=== PATIENT | female | born 1995 | race Caucasian/White ===

== ENCOUNTER 2017-03-20 12:13 | Emergency (ER) | payer SELFPAY ==
[~2017-03-20] VITALS: Ht 157.5 cm; Wt 81.2 kg
[2017-03-20 12:22] VITALS: BP 132/59
--- NOTE | 2017-03-20 13:25 | PHYS DOC ---
Past Medical History Past Medical History: Bipolar Past Surgical History: Tonsillectomy Alcohol Use: None Drug Use: None Adult General Chief Complaint Chief Complaint: ABDOMINAL PAIN IN HPI HPI Patient is a 21 year old female who presents with mild crampy lower abdominal pain for the past day, constant, migratory. 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 She has 3 +preg tests at home. She denies vaginal bleeding, dysuria, hematuria, diarrhea, constipation. Review of Systems Review of Systems Constitutional: Denies fever or chills [] Eyes: Denies change in visual acuity, redness, or eye pain [] HENT: Denies nasal congestion or sore throat [] Respiratory: Denies cough or shortness of breath [] Cardiovascular: No additional information not addressed in HPI [] GI: Denies nausea, vomiting, bloody stools or diarrhea [] : Denies dysuria or hematuria [] Musculoskeletal: Denies back pain or joint pain [] Integument: Denies rash or skin lesions [] Neurologic: Denies headache, focal weakness or sensory changes [] Endocrine: Denies polyuria or polydipsia [] Allergies Allergies Allergies Coded Allergies Type Severity Reaction Last Updated Verified No Known Drug Allergies 03/20/17 No Physical Exam Physical Exam Constitutional: Well developed, well nourished, no acute distress, non-toxic appearance. [] HENT: Normocephalic, atraumatic, bilateral external ears normal, oropharynx moist, nose normal. [] Eyes: PERRLA, EOMI. [] Neck: Normal range of motion, supple. [] Cardiovascular:Heart rate regular rhythm [] Lungs & Thorax: Bilateral breath sounds clear to auscultation [] Abdomen: Bowel sounds normal, soft, no tenderness. [] Skin: Warm, dry, no erythema, no rash. [] Back: Normal range of motion. [] Extremities: No tenderness, ROM intact, no edema. [] Neurologic: Alert and oriented X 3, normal motor function, normal sensory function, no focal deficits noted. [] Psychologic: Affect normal, judgement normal, mood normal. [] Current Patient Data Vital Signs Vital Signs Date Time Temp Pulse Resp B/P (MAP) Pulse Ox O2 Delivery O2 Flow Rate FiO2 03/20/17 12:22 98.5 91 18 132/59 (83) 99 Room Air 98.5 Lab Values Laboratory Tests Test 03/20/17 11:36 POC Urine HCG, Qualitative Hcg positive (Negative) Radiology/Procedures Radiology/Procedures OB ultrasound Findings: Probable gestational sac and yolk sac are identified. A pole and heart tones are not yet identified. Gestational sac diameter is 0.88 cm corresponding to gestational age of 5 weeks 5 days and an PETEY by ultrasound of November 15, 2017. There is no evidence of an implantation bleed. Both maternal ovaries are visualized. Corpus luteum or hemorrhagic cyst in the left ovary measures 2 cm. Color flow and waveform is documented for both ovaries. There is no free pelvic fluid. Impression: Probable gestational sac and yolk sac identified, although definite pole is not yet identified and heart tones could not be documented. Serial hCG would be suggested. Short-term follow-up may be of benefit. DICTATED and SIGNED BY: ALEJANDRO JOHNSON MD DATE: 03/20/17 6277 Course & Med Decision Making Course & Med Decision Making Pertinent Labs and Imaging studies reviewed. (See chart for details) Ultrasound as above. Encouraged OB clinic follow up. Return precautions given. She understands and agrees with plan. Dragon Disclaimer Dragon Disclaimer This electronic medical record was generated, in whole or in part, using a voice recognition dictation system. Departure Departure Impression: Primary Impression: Abdominal pain during Disposition: 01 HOME, SELF-CARE Condition: STABLE Referrals: CHAR DO MD Patient Instructions: Abdominal Pain During , [id number] Additional Instructions: Take a daily multivitamin. Take tylenol as needed for pain. Follow up with OB clinic within 1 week. Call for appointment. Return for any concerns. Problem Qualifiers Primary Impression: Abdominal pain during Trimester: first trimester Qualified Codes: O26.891 - Other specified related conditions, first trimester; R10.9 - Unspecified abdominal pain Leisa ENRIQUEZ MD March 20, 2017 13:25
--- NOTE | 2017-03-20 13:40 | RAD ---
Indication: Pelvic pain. . Technique: Transabdominal imaging was performed but was limited. Transvaginal imaging was required to evaluate the endometrial contents. Findings: Probable gestational sac and yolk sac are identified. A pole and heart tones are not yet identified. Gestational sac diameter is 0.88 cm corresponding to gestational age of 5 weeks 5 days and an PETEY by ultrasound of November 15, 2017. There is no evidence of an implantation bleed. Both maternal ovaries are visualized. Corpus luteum or hemorrhagic cyst in the left ovary measures 2 cm. Color flow and waveform is documented for both ovaries. There is no free pelvic fluid. Impression: Probable gestational sac and yolk sac identified, although definite pole is not yet identified and heart tones could not be documented. Serial hCG would be suggested. Short-term follow-up may be of benefit.
== END 2017-03-20 14:00 | disposition home or self-care (01) ==
LOC: ER 13:28
DX: O26.891 Other specified pregnancy related conditions, first trimester (principal); R10.30 Lower abdominal pain, unspecified; R10.2 Pelvic and perineal pain; F31.9 Bipolar disorder, unspecified
CPT/HCPCS: 36415; 76801; 76817; 81025; 84702; 84703; 99285-25

== ENCOUNTER 2017-04-04 14:59 | Emergency (ER) | payer OTHER ==
[~2017-04-04] VITALS: Ht 157.5 cm; Wt 63.5 kg
[2017-04-04 16:17] VITALS: BP 134/75
[2017-04-04] MEDS ORDERED: 0.9 % SODIUM CHLORIDE 10 ML DISP.SYRIN. IV PRN (16:30)
[2017-04-04] MEDS ORDERED: IV NORMAL SALINE 1000ML BAG 1,000 ML IV SCH (16:45)
[2017-04-04] MEDS ORDERED: ONDANSETRON PF 4 MG/2 ML VIAL. IV ONE (16:45)
[2017-04-04 16:49] LABS: BILIRUBIN,URINE NEGATIVE (NEG); GLUCOSE,URINE NEGATIVE (NEG); NITRITE,URINE NEGATIVE (NEG); PROTEIN,URINE 30 mg/dL (NEG-TRACE); UROBILINOGEN,URINE 0.2 mg/dL (0.2 mg/dL)
[2017-04-04 16:57] LABS: BACTERIA,URINE FEW /HPF (0-FEW); RBC,URINE 0 /HPF (0-2); SQUAMOUS EPITHELIAL CELL,UR MOD /LPF
[2017-04-04 17:01] LABS: BASO % 1 % (0-3); EOS % 0 % (0-3); HEMATOCRIT 40.3 % (36.0-47.0); HEMOGLOBIN 13.6 g/dL (12.0-15.5); LYMPH # 1.6 x10^3/uL (1.0-4.8); LYMPH % 19 % (24-48); MEAN CORPUSCULAR HEMOGLOBIN 30 pg (25-35); MEAN CORPUSCULAR HGB CONC 34 g/dL (31-37); MEAN CORPUSCULAR VOLUME 88 fL (79-100); MONO % 9 % (0-9); NEUT % 72 % (31-73); PLATELET COUNT 176 x10^3/uL (140-400); RED BLOOD COUNT 4.58 x10^6/uL (3.50-5.40); RED CELL DISTRIBUTION WIDTH 12.9 % (11.5-14.5); WHITE BLOOD COUNT 8.6 x10^3/uL (4.0-11.0)
[2017-04-04 17:11] LABS: CALCIUM 9.5 mg/dL (8.5-10.1); CREATININE 0.6 mg/dL (0.6-1.0); GFR 127.5; POTASSIUM 3.3 mmol/L (3.5-5.1)
[2017-04-04 17:17] LABS: ALBUMIN 4.2 g/dL (3.4-5.0); TOTAL BILIRUBIN 0.6 mg/dL (0.2-1.0); TOTAL PROTEIN 8.6 g/dL (6.4-8.2)
--- NOTE | 2017-04-04 17:50 | PHYS DOC ---
Past Medical History Past Medical History: Bipolar Past Surgical History: No Surgical History, Tonsillectomy Alcohol Use: None Drug Use: None Adult General Chief Complaint Chief Complaint: ABDOMINAL PAIN IN HPI HPI Patient is a 22 year old who is healthy female at about 7 weeks by LMP presents with nausea and vomiting described as morning sickness and mild vaginal discharge described as clear whitish without pain. Patient also explains that she is having some reflux symptoms over time and having difficulty tolerating her saliva. She denies any transfer dysphagia change in voice or fevers. Trauma denies any sick contacts or diarrhea. Review of Systems Review of Systems Constitutional: Denies fever or chills [] Eyes: Denies change in visual acuity, redness, or eye pain [] HENT: Denies nasal congestion or sore throat [] Respiratory: Denies cough or shortness of breath [] Cardiovascular: No additional information not addressed in HPI [] GI: Denies abdominal pain, diarrhea or bloody stools but does complain of nausea number listed on bloody vomiting and morning sickness : Denies dysuria or hematuria [] Musculoskeletal: Denies back pain or joint pain [] Integument: Denies rash or skin lesions [] Neurologic: Denies headache, focal weakness or sensory changes [] Endocrine: Denies polyuria or polydipsia [] Current Medications Current Medications Current Medications Medications (Trade) Dose Ordered Sig/Mike Start Time Stop Time Status Last Admin Dose Admin Ondansetron HCl (Zofran) 4 mg 1X ONCE 04/04/17 16:45 04/04/17 16:46 DC 04/04/17 16:59 4 MG Sodium Chloride (Normal Saline Flush) 10 ml QSHIFT PRN 04/04/17 16:30 Allergies Allergies Allergies Coded Allergies Type Severity Reaction Last Updated Verified No Known Drug Allergies 03/20/17 No Physical Exam Physical Exam Constitutional: Well developed, well nourished, no acute distress, non-toxic appearance. [] HENT: Normocephalic, atraumatic, bilateral external ears normal, oropharynx moist, no oral exudates, nose normal. [] Eyes: PERRLA, EOMI, conjunctiva normal, no discharge. [] Neck: Normal range of motion, no tenderness, supple, no stridor. [] Cardiovascular:Heart rate regular rhythm, no murmur [] Lungs & Thorax: Bilateral breath sounds clear to auscultation [] Abdomen: Bowel sounds normal, soft, no tenderness, no masses, no pulsatile masses. [] Skin: Warm, dry, no erythema, no rash. [] Back: No tenderness, no CVA tenderness. [] Extremities: No tenderness, no cyanosis, no clubbing, ROM intact, no edema. [] Neurologic: Alert and oriented X 3, normal motor function, normal sensory function, no focal deficits noted. [] Psychologic: Affect normal, judgement normal, mood normal. [] Current Patient Data Vital Signs Vital Signs Date Time Temp Pulse Resp B/P (MAP) Pulse Ox O2 Delivery O2 Flow Rate FiO2 04/04/17 16:17 100.6 79 16 134/75 (94) 97 Room Air 100.6 Lab Values Laboratory Tests Test 04/04/17 15:43 04/04/17 16:05 04/04/17 16:57 POC Urine HCG, Qualitative Hcg positive (Negative) Urine Collection Type Unknown Urine Color Yellow Urine Clarity Cloudy Urine pH 6.0 Urine Specific [place] >=1.030 Urine Protein 30 mg/dL (NEG-TRACE) Urine Glucose (UA) Negative mg/dL (NEG) Urine Ketones (Stick) >=80 mg/dL (NEG) Urine Blood Negative (NEG) Urine Nitrite Negative (NEG) Urine Bilirubin Negative (NEG) Urine Urobilinogen Dipstick 0.2 mg/dL (0.2 mg/dL) Urine Leukocyte Esterase Negative (NEG) Urine RBC 0 /HPF (0-2) Urine WBC 1-4 /HPF (0-4) Urine Squamous Epithelial Cells Mod /LPF Urine Bacteria Few /HPF (0-FEW) Urine Mucus Marked /LPF White Blood Count 8.6 x10^3/uL (4.0-11.0) Red Blood Count 4.58 x10^6/uL (3.50-5.40) Hemoglobin 13.6 g/dL (12.0-15.5) Hematocrit 40.3 % (36.0-47.0) Mean Corpuscular Volume 88 fL (79-100) Mean Corpuscular Hemoglobin 30 pg (25-35) Mean Corpuscular Hemoglobin Concent 34 g/dL (31-37) Red Cell Distribution Width 12.9 % (11.5-14.5) Platelet Count 176 x10^3/uL (140-400) Neutrophils (%) (Auto) 72 % (31-73) Lymphocytes (%) (Auto) 19 % (24-48) L Monocytes (%) (Auto) 9 % (0-9) Eosinophils (%) (Auto) 0 % (0-3) Basophils (%) (Auto) 1 % (0-3) Neutrophils # (Auto) 6.2 x10^3uL (1.8-7.7) Lymphocytes # (Auto) 1.6 x10^3/uL (1.0-4.8) Monocytes # (Auto) 0.7 x10^3/uL (0.0-1.1) Eosinophils # (Auto) 0.0 x10^3/uL (0.0-0.7) Basophils # (Auto) 0.0 x10^3/uL (0.0-0.2) Maternal Serum HCG Beta Subunit [id number] mIU/mL (0-6) H Sodium Level 136 mmol/L (136-145) Potassium Level 3.3 mmol/L (3.5-5.1) L Chloride Level 100 mmol/L (98-107) Carbon Dioxide Level 24 mmol/L (21-32) Anion Gap 12 (6-14) Blood Urea Nitrogen 11 mg/dL (7-20) Creatinine 0.6 mg/dL (0.6-1.0) Estimated GFR (Cockcroft-Gault) 127.5 BUN/Creatinine Ratio 18 (6-20) Glucose Level 81 mg/dL (70-99) Calcium Level 9.5 mg/dL (8.5-10.1) Total Bilirubin 0.6 mg/dL (0.2-1.0) Aspartate Amino Transferase (AST) 19 U/L (15-37) Alanine Aminotransferase (ALT) 23 U/L (14-59) Alkaline Phosphatase 79 U/L (46-116) Total Protein 8.6 g/dL (6.4-8.2) H Albumin 4.2 g/dL (3.4-5.0) Albumin/Globulin Ratio 1.0 (1.0-1.7) Laboratory Tests 04/04/17 16:57 Laboratory Tests 04/04/17 16:57 EKG EKG [] Radiology/Procedures Radiology/Procedures [] IMAGING REPORT Signed PATIENT: ABEBA WYATT ACCOUNT: [id number] : 1995 LOCATION: ER AGE: 22 SEX: F EXAM STATUS: REG ER ORD. PHYSICIAN: OXANA RADER MD REASON: lower ab pain PROCEDURE: PREG 1ST TRIMESTER PREG 1ST TRIMESTER Clinical Indication: pelvic pain Comparison: None. TECHNIQUE: Real-time ultrasound imaging of the pelvis is performed using transabdominal and transvaginal window. Findings: Uterus measures 9.5 x 7.4 x 5.4 cm. The adnexa are obscured due to overlying bowel gas on the transabdominal images. There is intrauterine gestational sac, yolk sac, and pole. Gestational sac contour is normal, no perigestational hemorrhage. The gestational sac is towards the fundus. [place]-rump length 0.9 cm, 7 weeks 0 days. Estimated heart rate of 150 bpm. Transvaginally, the right ovary measures 2.5 x 1.2 x 1.1 cm. Tiny follicles are seen. Normal blood flow in the ovaries. The left ovary measures 2.6 x 2.4 x 2.3 cm. Suspected corpus luteum measuring up to 1.9 cm. No cul-de-sac free fluid. No evidence of adnexal mass. IMPRESSION: Single live intrauterine gestation, estimated sonographic gestational age 7 weeks and 0 days. Electronically signed by: Jani Islas MD (04/04/2017 7:09 PM) DICTATED and SIGNED BY: JANI ISLAS MD DATE: 04/04/171904 CC: OXANA RADER MD; NO PCP ~ Course & Med Decision Making Course & Med Decision Making Pertinent Labs and Imaging studies reviewed. (See chart for details) patient presents with vaginal discharge early although no pain nausea vomiting described as morning sickness. Offered fluids antiemetics and reevaluation of her pelvic exam to include beta hCG quantitative and ultrasound to ensure that the baby is improving and developing normally. Patient tells me that their sumptoms given during CC are improved. We reviewed labs and radiology reports with patient and any family at bedside. Urinalysis is mildly contaminated with mild bacteria but no white blood cells. Impression's exam demonstrated, sheetlike discharge and has had the vaginal vault. Cyst with a yeast infection. Her os is closed there is no CMT there is no adnexal fullness or bleeding. No other lesions noted on her vaginal exam. Ultrasound was returned with a clear IUP 7 weeks 2 days with good heart tones. Patient reflux and her symptoms of nausea improved with fluids and Zofran. It is noted on routine evaluation that her potassium is low which is likely secondary to GI losses. Patient asked to follow-up with her FAMILY [employer] in next 12-24 hours if symptoms continue will encourage her to continue to fluid hydrate she will take potassium, Zofran and fluids also given clotrimazole intravaginal applications to treat her yeast infection. Impression: Threatened miscarriage, vaginal candidiasis, reflux nausea vomiting morning sickness. Disposition O2 and follow-up 12-24 hours if tenderness continue precautions given. [] Dragon Disclaimer Dragon Disclaimer This electronic medical record was generated, in whole or in part, using a voice recognition dictation system. Departure Departure Impression: Primary Impression: Threatened miscarriage Additional Impressions: Esophageal reflux Vaginal candidiasis Disposition: HOME, SELF-CARE Condition: IMPROVED Referrals: NO PCP (PCP) Patient Instructions: Clotrimazole vaginal cream, Diet for Gastroesophageal Reflux Disease, Adult, Gastroesophageal Reflux Disease, Adult, Threatened Miscarriage Scripts Potassium Chloride (POTASSIUM CHLORIDE) 10 Meq Capsule.er 10 MEQ PO DAILY for 7 Days, #7 TAB.SR Prov: OXANA RADER MD 04/04/17 Ondansetron (ZOFRAN ODT) 4 Mg Tab.rapdis 4 MG PO BID Y for NAUSEA/VOMITING for 7 Days, #14 TAB Prov: OXANA RADER MD 04/04/17 Clotrimazole (CLOTRIMAZOLE) 15 Gm Cream..g. 1 APPFUL TP TID for 7 Days, #45 GM Please use one application fall inside her vagina 3 times a day for the next 7 days other 1% cream to treat her symptoms. Prov: OXANA RADER MD 04/04/17 Problem Qualifiers OXANA RADER MD Apr 04, 2017 17:50
--- NOTE | 2017-04-04 19:13 | RAD ---
PREG 1ST TRIMESTER Clinical Indication: pelvic pain Comparison: None. TECHNIQUE: Real-time ultrasound imaging of the pelvis is performed using transabdominal and transvaginal window. Findings: Uterus measures 9.5 x 7.4 x 5.4 cm. The adnexa are obscured due to overlying bowel gas on the transabdominal images. There is intrauterine gestational sac, yolk sac, and pole. Gestational sac contour is normal, no perigestational hemorrhage. The gestational sac is towards the fundus. [place]-rump length 0.9 cm, 7 weeks 0 days. Estimated heart rate of 150 bpm. Transvaginally, the right ovary measures 2.5 x 1.2 x 1.1 cm. Tiny follicles are seen. Normal blood flow in the ovaries. The left ovary measures 2.6 x 2.4 x 2.3 cm. Suspected corpus luteum measuring up to 1.9 cm. No cul-de-sac free fluid. No evidence of adnexal mass. IMPRESSION: Single live intrauterine gestation, estimated sonographic gestational age 7 weeks and 0 days. Electronically signed by: Jani Valle MD (04/04/2017 7:09 PM)
[2017-04-04] MEDS ORDERED: ONDA4TAB10 PO (19:35)
[2017-04-04] MEDS ORDERED: CLOT15CR4 TP (19:35)
[2017-04-04] MEDS ORDERED: POTASSIUM CHLO10 MEQ PO (19:35)
== END 2017-04-04 19:44 | disposition home or self-care (01) ==
LOC: ER 14:59
DX: O20.0 Threatened abortion (principal); O99.611 Diseases of the digestive system complicating pregnancy, first trimester; K21.9 Gastro-esophageal reflux disease without esophagitis; O98.811 Other maternal infectious and parasitic diseases complicating pregnancy, first trimester; B37.3 Candidiasis of vulva and vagina; O99.341 Other mental disorders complicating pregnancy, first trimester; F31.9 Bipolar disorder, unspecified; Z3A.01 Less than 8 weeks gestation of pregnancy
CPT/HCPCS: 36415; 76801; 80053; 81001; 81025; 84702; 85027; 86850; 86900; 86901; 87491; 87591; 96374; 99285; J2405; J7030; Q0111

== ENCOUNTER → 2017-09-06 | Outpatient (CLI) | payer OTHER ==
[~2017-09-06] VITALS: Ht 157.5 cm; Wt 74.8 kg
[~2017-09-06] MED LIST: CLOT15CR4 TP; ONDA4TAB10 PO; PNV1TABL25 PO; POTASSIUM CHLO10 MEQ PO
[2017-09-06 10:48] VITALS: BP 115/64
== END | disposition home or self-care (01) ==
LOC: OPS 09:04
PROVIDERS: ATTEND Specialist
DX: O36.0191 Maternal care for anti-D [Rh] antibodies, unspecified trimester, fetus 1 (principal); Z3A.00 Weeks of gestation of pregnancy not specified
CPT/HCPCS: 36415; 86850; 86900; 86901; 96372; J2791

== ENCOUNTER 2019-09-30 16:46 | Emergency (ER) | payer BC, OTHER ==
[~2019-09-30] VITALS: Ht 165.1 cm; Wt 83.0 kg
[~2019-09-30 16:46] MED LIST changes: +NAPR-514 PO; +OXYC1TAB15 PO; +POTA10TA12 PO; -POTASSIUM CHLO10 MEQ PO
[2019-09-30 18:28] VITALS: BP 119/77
[2019-09-30] MEDS ORDERED: AZITHROMYCIN 250 MG TABLET. PO ONE (19:00)
[2019-09-30] MEDS ORDERED: cefTRIAXone IM 250 MG VIAL IM ONE (19:00)
--- NOTE | 2019-09-30 19:15 | PHYS DOC ---
Past Medical History Past Medical History: Bipolar (ANGELA RAMOS APRN) Past Surgical History: No Surgical History, Tonsillectomy (ANGELA RAMOS APRN) Alcohol Use: None Drug Use: None (ANGELA RAMOS APRN) Attending Signature I have participated in the care of this patient and I have reviewed and agree with all pertinent clinical information above including history, exam, and recommendations. (PORSCHE SOTELO MD) Adult General Chief Complaint Chief Complaint: SEXUALLY TRANSMITTED DISEASE HPI HPI Patient is a 24 year old female who presents to the emergency department with complaints of irregular white vaginal discharge and dysuria for the last 2 or 3 days. She states she is concerned that she may have contracted a sexually transmitted infection. Patient reports having unprotected intercourse with a new partner last month. She denies any concerns of . Patient denies any blood in her urine, increased urinary frequency, low back pain, nausea, vomiting, diarrhea, fever, vaginal odor, or vaginal itching. She currently denies any pain. Patient also complains of recent cold symptoms including nasal congestion, dry cough, pressure in her ears, and scratchy throat. She denies any fever, difficulty swallowing, wheezing, or shortness of breath. All other ROS is neg unless otherwise noted in HPI. (ANGELA RAMOS APRN) Review of Systems Review of Systems See Above (ANGELA RAMOS APRN) Current Medications Current Medications Current Medications Medications (Trade) Dose Ordered Sig/Mike Start Time Stop Time Status Last Admin Dose Admin Azithromycin (Zithromax) 1,000 mg 1X ONCE 09/30/19 19:00 09/30/19 19:01 DC 09/30/19 19:08 1,000 MG Ceftriaxone Sodium (Rocephin Im) 250 mg 1X ONCE 09/30/19 19:00 09/30/19 19:01 DC 09/30/19 19:08 250 MG (PORSCHE SOTELO MD) Allergies Allergies Allergies Coded Allergies Type Severity Reaction Last Updated Verified No Known Drug Allergies 09/06/17 No (PORSCHE SOTELO MD) Physical Exam Physical Exam See Above Constitutional: Well developed, well nourished, no acute distress, non-toxic appearance. [] HENT: Normocephalic, atraumatic, bilateral external ears normal, bilateral TMs normal, oropharynx moist, no oral exudates, nose normal. [] Eyes: PERRLA, EOMI, conjunctiva normal, no discharge. [] Neck: Normal range of motion, no tenderness, supple, no stridor. [] Cardiovascular:Heart rate regular rhythm, no murmur [] Lungs & Thorax: Bilateral breath sounds clear to auscultation [] Pelvic Exam: Creative Specialist present Gauri RN Abdomen: Nontender, soft External Genitalia: Normal Skin Speculum: Normal vaginal mucosa, milky white cervical discharge Bimanual: No adnexal masses or tenderness, No CMT Skin: Warm, dry, no erythema, no rash. [] Back: No CVA tenderness. [] Extremities: No cyanosis, ROM intact, no edema. [] Neurologic: Alert and oriented X 3, no focal deficits noted. [] Psychologic: Affect normal, judgement normal, mood normal. [] (ANGELA RAMOS APRN) Current Patient Data Vital Signs Vital Signs Date Time Temp Pulse Resp B/P (MAP) Pulse Ox O2 Delivery O2 Flow Rate FiO2 09/30/19 18:28 98.6 72 16 119/77 (91) 99 Room Air 98.6 (PORSCHE SOTELO MD) Lab Values Laboratory Tests Test 09/30/19 18:16 09/30/19 19:28 Urine Collection Type Unknown Urine Color Yellow Urine Clarity Clear Urine pH 7.0 Urine Specific [place] <=1.005 Urine Protein Negative mg/dL (NEG-TRACE) Urine Glucose (UA) Negative mg/dL (NEG) Urine Ketones (Stick) Negative mg/dL (NEG) Urine Blood Negative (NEG) Urine Nitrite Negative (NEG) Urine Bilirubin Negative (NEG) Urine Urobilinogen Dipstick 1.0 mg/dL (0.2 mg/dL) Urine Leukocyte Esterase Small (NEG) Urine RBC 3-5 /HPF (0-2) Urine WBC >40 /HPF (0-4) Urine Squamous Epithelial Cells Few /LPF Urine Bacteria Few /HPF (0-FEW) POC Urine HCG, Qualitative Hcg negative (Negative) Microbiology 09/30/19 Wet Prep - Final, Complete (PORSCHE SOTELO MD) EKG EKG [] (ANGELA RAMOS APRN) Radiology/Procedures Radiology/Procedures [] (ANGELA RAMOS APRN) Course & Med Decision Making Course & Med Decision Making Pertinent Labs and Imaging studies reviewed. (See chart for details) Patient is a 24-year-old female who presented to the emergency department with complaints of URI symptoms for the last week, and irregular vaginal discharge with dysuria for the last 2 or 3 days. She reported concerns of this sexually transmitted infection. The wet mount revealed clue cells indicating bacterial vaginosis, her UA revealed large amount of white blood cells, no nitrates, accompanied with her complaint of dysuria this was suggestive of a urinary tract infection. Prescription was written for Keflex 500 mg twice a day 7 days and Flagyl 500 mg by mouth twice a day 7 days. In the department, the patient was treated prophylactically with 250 mg of IM Rocephin, and 1 g of PO Zithromax. Patient was instructed to avoid having intercourse until the results of gonorrhea and chlamydia testing are available, patient was notified that these results would not be available for 48 hours. If one or both of these tests is positive, patient needs to refrain from intercourse for approximately 1 week following the treatment of any current partners. PT verbalized an understanding of home care, medications, follow-up, and return to ED instructions and was in agreement with the plan of care. [] (ANGELA RAMOS APRN) Dragon Disclaimer Dragon Disclaimer This electronic medical record was generated, in whole or in part, using a voice recognition dictation system. (ANGELA RAMOS APRN) Departure Departure Impression: Primary Impression: Bacterial vaginosis Additional Impressions: UTI (urinary tract infection) Contact with and (suspected) exposure to infections with a predominantly sexual mode of transmission Upper respiratory infection with cough and congestion Disposition: 01 HOME, SELF-CARE Condition: STABLE Referrals: NO PCP (PCP) Patient Instructions: Bacterial Vaginosis, [id number], Sexually Transmitted Disease, [id number], Urinary Tract Infection, [id number] Additional Instructions: Fill the prescription and use as directed. Recommend that you go to your local health department for comprehensive sexually transmitted disease testing. You have been treated for a suspected gonorrhea and chlamydia. Avoid having intercourse until the results of gonorrhea and chlamydia testing are available, these results will not be available for 48 hours. If one or both of these tests is positive, you need to refrain from intercourse for approximately 1 week following the treatment of any current partners. Avoid bladder irritants such as caffeine, carbonation, and spicy foods. Increase clear fluids. Follow up with your primary care doctor if symptoms persist, return to the ER if symptoms worsen. Scripts Cephalexin (KEFLEX) 500 Mg Capsule 1 CAP PO BID for 7 Days, #14 CAP 0 Refills Prov: ANGELA RAMOS APRN 09/30/19 Metronidazole (METRONIDAZOLE) 500 Mg Tablet 1 TAB PO BID for 7 Days, #14 TAB 0 Refills Prov: ANGELA RAMOS APRN 09/30/19 Problem Qualifiers Additional Impressions: UTI (urinary tract infection) Urinary tract infection type: site unspecified Hematuria presence: without hematuria Qualified Codes: N39.0 - Urinary tract infection, site not specified ANGELA RAMOS APRN Sep 30, 2019 19:15 PORSCHE SOTELO MD Sep 30, 2019 23:53
[2019-09-30 19:38] LABS: BILIRUBIN,URINE NEGATIVE (NEG); CLARITY,URINE CLEAR; COLOR,URINE YELLOW; NITRITE,URINE NEGATIVE (NEG); PROTEIN,URINE NEGATIVE (NEG-TRACE)
[2019-09-30 19:54] LABS: BACTERIA,URINE FEW /HPF (0-FEW); SQUAMOUS EPITHELIAL CELL,UR FEW /LPF; WBC,URINE >40 /HPF (0-4)
[2019-09-30] MEDS ORDERED: CEPH-264 PO (20:26)
[2019-09-30] MEDS ORDERED: METR-34 PO (20:26)
[2019-10-02 17:09] LABS: GC PROBE Positive (Negative)
== END 2019-09-30 20:33 | disposition home or self-care (01) ==
LOC: ER 16:46
DX: N39.0 Urinary tract infection, site not specified (principal); N76.0 Acute vaginitis; B96.89 Other specified bacterial agents as the cause of diseases classified elsewhere; Z20.2 Contact with and (suspected) exposure to infections with a predominantly sexual mode of transmission; J06.9 Acute upper respiratory infection, unspecified
CPT/HCPCS: 81001; 81025; 87086; 87491; 87591; 96372; 99284; J0696; Q0111; Q0144

== ENCOUNTER 2019-12-25 13:45 | Emergency (ER) | payer SELFPAY ==
[~2019-12-25] VITALS: Ht 157.5 cm; Wt 54.1 kg
[~2019-12-25 13:45] MED LIST changes: +CEPH-264 PO; +METR-34 PO
[2019-12-25 15:07] LABS: BILIRUBIN,URINE NEGATIVE (NEG); CLARITY,URINE TURBID; COLOR,URINE YELLOW; NITRITE,URINE NEGATIVE (NEG); PROTEIN,URINE NEGATIVE (NEG-TRACE); UROBILINOGEN,URINE 0.2 mg/dL (0.2 mg/dL)
[2019-12-25] MEDS ORDERED: IV NORMAL SALINE 1000ML BAG 1,000 ML IV ONE (15:15)
[2019-12-25 15:20] LABS: SQUAMOUS EPITHELIAL CELL,UR MOD /LPF
[2019-12-25 15:21] LABS: BACTERIA,URINE MODERATE /HPF (0-FEW); RBC,URINE 0 /HPF (0-2); WBC,URINE 20-40 /HPF (0-4)
[2019-12-25 15:26] LABS: BASO % 0 % (0-3); EOS % 0 % (0-3); HEMATOCRIT 36.1 % (36.0-47.0); HEMOGLOBIN 12.2 g/dL (12.0-15.5); LYMPH # 1.4 x10^3/uL (1.0-4.8); LYMPH % 18 % (24-48); MEAN CORPUSCULAR HEMOGLOBIN 31 pg (25-35); MEAN CORPUSCULAR HGB CONC 34 g/dL (31-37); MEAN CORPUSCULAR VOLUME 91 fL (79-100); MONO # 0.5 x10^3/uL (0.0-1.1); MONO % 7 % (0-9); NEUT % 75 % (31-73); PLATELET COUNT 156 x10^3/uL (140-400); RED BLOOD COUNT 3.97 x10^6/uL (3.50-5.40); RED CELL DISTRIBUTION WIDTH 13.9 % (11.5-14.5)
[2019-12-25] MEDS ORDERED: cefTRIAXone IV Push 1 GM VIAL. IVP ONE (15:30)
--- NOTE | 2019-12-25 15:36 | PHYS DOC ---
Past Medical History Past Medical History: Bipolar (ANGELA RAMOS APRN) Past Surgical History: No Surgical History, Tonsillectomy (ANGELA RAMOS APRN) Smoking Status: Never Smoker Alcohol Use: None Drug Use: None (ANGELA RAMOS APRN) Adult General Chief Complaint Chief Complaint: VAGINAL BLEEDING HPI HPI Patient is a 24 year old female presents to the emergency department with complaints of nausea and vomiting in the mornings for the last 2 weeks. Patient states she vomited twice this morning. She currently denies any nausea, v omiting, diarrhea, abdominal pain, dizziness, headache, fever, cough, shortness of breath, chest pain, palpitations, sore throat, ear pain, or dizziness. The patient denies any vaginal bleeding, irregular vaginal discharge, or vaginal odor. She also denies any dysuria, hematuria, or low back pain. Patient states she has had increased urinary frequency lately she is concerned that she may be . Patient states her last menstrual cycle was on October 15, 2019. She has not taken a test. Patient is 1, para 1, with no history. She currently denies any pain. (ANGELA RAMOS APRN) Review of Systems Review of Systems Complete ROS is negative unless otherwise noted in HPI. (ANGELA RAMOS APRN) Current Medications Current Medications Current Medications Medications (Trade) Dose Ordered Sig/Mike Start Time Stop Time Status Last Admin Dose Admin Ceftriaxone Sodium (Rocephin) 1 gm 1X ONCE 12/25/19 15:30 12/25/19 15:33 DC 12/25/19 16:20 1 GM Potassium Chloride (Klor-Con) 40 meq 1X ONCE 12/25/19 16:15 12/25/19 16:16 DC 12/25/19 16:20 40 MEQ Sodium Chloride 1,000 ml @ 1,000 mls/hr 1X ONCE 12/25/19 15:15 12/25/19 16:14 DC 12/25/19 15:22 1,000 MLS/HR (HEBER MARTE MD) Allergies Allergies Allergies Coded Allergies Type Severity Reaction Last Updated Verified No Known Drug Allergies 09/06/17 No (HEBER MARTE MD) Physical Exam Physical Exam Constitutional: Well developed, well nourished, no acute distress, non-toxic appearance. [] HENT: Normocephalic, atraumatic, bilateral external ears normal, oropharynx moist, no oral exudates, nose normal. [] Eyes: PERRLA, EOMI, conjunctiva normal, no discharge. [] Neck: Normal range of motion, no stridor. [] Cardiovascular:Heart rate regular rhythm, no murmur [] Lungs & Thorax: Bilateral breath sounds clear to auscultation [] Abdomen: Bowel sounds normal, soft, no tenderness, no masses, no pulsatile masses. [] Skin: Warm, dry, no erythema, no rash. [] Back: No CVA tenderness. [] Extremities: No cyanosis, ROM intact, no edema. [] Neurologic: Alert and oriented X 3, no focal deficits noted. [] Psychologic: Affect normal, judgement normal, mood normal. [] (ANGELA RAMOS APRN) Current Patient Data Vital Signs Vital Signs Date Time Temp Pulse Resp B/P (MAP) Pulse Ox O2 Delivery O2 Flow Rate FiO2 12/25/19 16:00 78 113/66 (82) 100 Room Air 12/25/19 15:00 98.5 20 98.5 (HEBER MARTE MD) Lab Values Laboratory Tests Test 12/25/19 14:48 12/25/19 14:58 12/25/19 15:10 Urine Collection Type Unknown Urine Color Yellow Urine Clarity Turbid Urine pH 6.0 Urine Specific [place] >=1.030 Urine Protein Negative mg/dL (NEG-TRACE) Urine Glucose (UA) 100 mg/dL (NEG) Urine Ketones (Stick) Negative mg/dL (NEG) Urine Blood Negative (NEG) Urine Nitrite Negative (NEG) Urine Bilirubin Negative (NEG) Urine Urobilinogen Dipstick 0.2 mg/dL (0.2 mg/dL) Urine Leukocyte Esterase Small (NEG) Urine RBC 0 /HPF (0-2) Urine WBC 20-40 /HPF (0-4) Urine Squamous Epithelial Cells Mod /LPF Urine Bacteria Moderate /HPF (0-FEW) Urine Mucus Marked /LPF POC Urine HCG, Qualitative Hcg positive (Negative) White Blood Count 8.0 x10^3/uL (4.0-11.0) Red Blood Count 3.97 x10^6/uL (3.50-5.40) Hemoglobin 12.2 g/dL (12.0-15.5) Hematocrit 36.1 % (36.0-47.0) Mean Corpuscular Volume 91 fL (79-100) Mean Corpuscular Hemoglobin 31 pg (25-35) Mean Corpuscular Hemoglobin Concent 34 g/dL (31-37) Red Cell Distribution Width 13.9 % (11.5-14.5) Platelet Count 156 x10^3/uL (140-400) Neutrophils (%) (Auto) 75 % (31-73) H Lymphocytes (%) (Auto) 18 % (24-48) L Monocytes (%) (Auto) 7 % (0-9) Eosinophils (%) (Auto) 0 % (0-3) Basophils (%) (Auto) 0 % (0-3) Neutrophils # (Auto) 6.0 x10^3/uL (1.8-7.7) Lymphocytes # (Auto) 1.4 x10^3/uL (1.0-4.8) Monocytes # (Auto) 0.5 x10^3/uL (0.0-1.1) Eosinophils # (Auto) 0.0 x10^3/uL (0.0-0.7) Basophils # (Auto) 0.0 x10^3/uL (0.0-0.2) Sodium Level 136 mmol/L (136-145) Potassium Level 3.4 mmol/L (3.5-5.1) L Chloride Level 102 mmol/L (98-107) Carbon Dioxide Level 26 mmol/L (21-32) Anion Gap 8 (6-14) Blood Urea Nitrogen 10 mg/dL (7-20) Creatinine 0.5 mg/dL (0.6-1.0) L Estimated GFR (Cockcroft-Gault) 154.3 Glucose Level 73 mg/dL (70-99) Calcium Level 8.6 mg/dL (8.5-10.1) Laboratory Tests 12/25/19 15:10 Laboratory Tests 12/25/19 15:10 (HEBER MARTE MD) EKG EKG [] (ANGELA RAMOS APRN) Radiology/Procedures Radiology/Procedures [] (ANGELA RAMOS APRN) Course & Med Decision Making Course & Med Decision Making Pertinent Labs and Imaging studies reviewed. (See chart for details) [] (ANGELA RAMOS APRN) Course & Med Decision Making Staff Physician Addendum: I was working in the ER during the course of this patient's visit. I was available for consultation as needed, but I was not directly involved in the care of this patient. (HEBER MARTE MD) Dragon Disclaimer Dragon Disclaimer This electronic medical record was generated, in whole or in part, using a voice recognition dictation system. (ANGELA RAMOS APRN) Departure Departure Impression: Primary Impression: UTI (urinary tract infection) Additional Impressions: Nausea and vomiting in prior to 22 weeks gestation Disposition: HOME, SELF-CARE Condition: STABLE Referrals: NO PCP (PCP) VAUGHN RIOS MD Patient Instructions: ABCs of , Nausea and Vomiting, [id number], - Urinary Tract Infection Additional Instructions: According to your last menstrual cycle you are approximately 10 weeks and your due date is 07/21/20. Fill prescriptions and use them as directed. Recommend clear fluids for the next 24 hours. Then you may advance to bland foods such as bananas, rice, applesauce, and dry toast. I recommend that you take a vitamin daily. Follow-up with your primary care doctor in the next 1-2 days, call Dr. Kang's office to establish care. Return to the emergency room if your symptoms worsen. Scripts Metoclopramide Hcl (REGLAN) 10 Mg Tablet 1 TAB PO QID PRN for NAUSEA/VOMITING for 7 Days, #28 TAB 0 Refills before food and bedtime Prov: ANGELA RAMOS APRN 12/25/19 Cephalexin (KEFLEX) 500 Mg Capsule 500 MG PO BID for 7 Days, #14 CAP 0 Refills Prov: ANGELA RAMOS APRN 12/25/19 Problem Qualifiers Primary Impression: UTI (urinary tract infection) Urinary tract infection type: acute cystitis Hematuria presence: without hematuria Qualified Codes: N30.00 - Acute cystitis without hematuria Additional Impressions: Weeks of gestation: 10 weeks Qualified Codes: Z3A.10 - 10 weeks gestation of ANGELA RAMOS APRN Dec 25, 2019 15:36 HEBER MARTE MD Dec 25, 2019 17:46
[2019-12-25 15:57] LABS: CALCIUM 8.6 mg/dL (8.5-10.1); CREATININE 0.5 mg/dL (0.6-1.0); GFR 154.3; POTASSIUM 3.4 mmol/L (3.5-5.1)
[2019-12-25 16:00] VITALS: BP 113/66
[2019-12-25] MEDS ORDERED: METO10TA81 PO (16:09)
[2019-12-25] MEDS ORDERED: CEPH-264 PO (16:09)
[2019-12-25] MEDS ORDERED: POTASSIUM CHLORIDE 20 MEQ TABLET.ER. PO ONE (16:15)
== END 2019-12-25 16:30 | disposition home or self-care (01) ==
LOC: ER 13:45
DX: O23.41 Unspecified infection of urinary tract in pregnancy, first trimester (principal); O21.9 Vomiting of pregnancy, unspecified; R35.0 Frequency of micturition; F31.9 Bipolar disorder, unspecified; Z90.89 Acquired absence of other organs; Z3A.10 10 weeks gestation of pregnancy
CPT/HCPCS: 36415; 80048; 81001; 81025; 85025; 87086; 96361; 96374; 99284; J0696; J7030

== ENCOUNTER → 2020-04-11 | Outpatient (CLI) | payer MEDICAID ==
[~2020-04-11] MED LIST changes: +CLOT15CR23 TP; -CLOT15CR4 TP; +METO10TA81 PO
--- NOTE | 2020-04-11 16:52 | RAD ---
EXAM: Ultrasound OB Greater than 14 weeks INDICATION: Reason: encounter for second trimester / Spl. Instructions: / History: TECHNIQUE: Real-time obstetrical ultrasound was performed with permanent freeze-frame documentation. COMPARISON: None. FINDINGS: POSITION: Cephalic HEART RATE: 1 58 bpm RAY: 10.3 cm PLACENTA: Posterior CERVICAL LENGTH: 4.2 cm MATERNAL UTERUS: Unremarkable. MATERNAL ADNEXA: Unremarkable. AGE/DATES: Gestational Age by LMP: 25 weeks 2 days Gestation Age by US: 24 weeks 5 days EDC by LMP: July 23, 2020 EDC by US: July 27, 2020 WEIGHT: 737 grams +/- 109 grams PERCENTILE WEIGHT: 39% BIOMETRIC PARAMETERS: BPD: 6.0 cm corresponding with 24 weeks 3 days HC: 22.7 cm corresponding with 24 weeks 5 days AC: 20.4 cm corresponding with 25 weeks 0 days FL: 4.4 cm corresponding with 24 weeks 4 days ANATOMY: CARDIAC: Normal four chamber heart. Normal left ventricular outflow tract. The right ventricle outflow tract was difficult to visualize. UMBILICAL CORD: Normal 3 vessel cord. Normal cord insertion. BRAIN: Unremarkable. NOSE/LIPS: Unremarkable. SPINE: Unremarkable. EXTREMITIES: Unremarkable. STOMACH: Unremarkable. KIDNEYS: Unremarkable. BLADDER: Unremarkable. IMPRESSION: Normal OB ultrasound demonstrating a single viable fetus in cephalic position. Estimated gestational age of 24 weeks 5 days and EDC of July 27, 2020. This is 4 days younger than estimated based on LMP. Electronically signed by: Deeapli Bueno MD (04/11/2020 4:49 PM) [id number]
== END ==
LOC: US 14:58
PROVIDERS: ATTEND Obstetrics & Gynecology
DX: O00.01 Abdominal pregnancy with intrauterine pregnancy (principal); Z3A.24 24 weeks gestation of pregnancy
CPT/HCPCS: 76805

== ENCOUNTER 2020-07-10 10:13 | Inpatient (IN) | payer MEDICAID ==
[~2020-07-10] VITALS: Ht 154.9 cm; Wt 66.7 kg
[2020-07-10 11:35] LABS: BILIRUBIN,URINE NEGATIVE (NEG); CLARITY,URINE CLEAR; COLOR,URINE YELLOW; NITRITE,URINE NEGATIVE (NEG); PROTEIN,URINE NEGATIVE (NEG-TRACE); UROBILINOGEN,URINE 0.2 mg/dL (0.2 mg/dL)
[2020-07-10 11:40] LABS: AMNIO PT POSITIVE
[2020-07-10 11:44] LABS: BACTERIA,URINE FEW /HPF (0-FEW); SQUAMOUS EPITHELIAL CELL,UR MANY /LPF; WBC,URINE 0 /HPF (0-4)
[2020-07-10] MEDS ORDERED: IV NORMAL SALINE 1000ML BAG 1,000 ML IV SCH (12:17)
--- NOTE | 2020-07-10 12:24 | PDOC1 ---
X RAY INSPECTOR H&P Date of Admission: Date of Admission: Jul 10, 2020 at 10:13 History of Present Illness: EDC: 07/23/20 LMP: 10/19/19 HPI: The pt is a 25y @ 38.1 by 19wk u/s presents with LOF. The pt was confirmed ROM. The pt desired a repeat C/S. PMH: Bipolar do, Childhood asthma. PSH: tonsils, C/S x 1 Meds: PNV, Fe OBHx: 37wk C/S for NRFHT SH: minimal tob use, no EtOH FH: noncontributory Allergies: Coded Allergies: No Known Drug Allergies (Unverified , 09/06/17) Physical Exam: PE: GENERAL: No apparent distress. Alert and oriented. HEENT: Head normocephalic, atraumatic. NECK: Supple LUNGS: Clear to auscultation. HEART: RRR, S1, S2 present, pulses intact ABDOMEN: Soft, positive bowel sounds. EXTREMITIES: No cyanosis or edema. NEUROLOGIC: Normal speech, normal tone PSYCHIATRIC: Normal affect, normal mood. SKIN: No ulceration. FHT: 120s +acels/no decels/mLTV [place]: 2-8 min Labs: Laboratory Tests Test 07/10/20 10:46 07/10/20 10:53 07/10/20 10:55 Amniotic Fluid Swab Test Positive Urine Collection Type Unknown Urine Color Yellow Urine Clarity Clear Urine pH 7.0 (<5.0-8.0) Urine Specific [place] 1.015 (1.000-1.030) Urine Protein Negative mg/dL (NEG-TRACE) Urine Glucose (UA) Negative mg/dL (NEG) Urine Ketones (Stick) Negative mg/dL (NEG) Urine Blood Negative (NEG) Urine Nitrite Negative (NEG) Urine Bilirubin Negative (NEG) Urine Urobilinogen Dipstick 0.2 mg/dL (0.2 mg/dL) Urine Leukocyte Esterase Negative (NEG) Urine RBC 1-2 /HPF (0-2) Urine WBC 0 /HPF (0-4) Urine Squamous Epithelial Cells Many /LPF Urine Bacteria Few /HPF (0-FEW) Urine Mucus Marked /LPF SARS-CoV-2 Antigen (Rapid) Negative (NEGATIVE) Assessment & Plan: A/P 25y @ 38.1 by 19wk u/s 1.) SROM confirmed, will add Azithro to preOp abx 2.) Prev C/S x 1 - desires repeat, OR notified 3.) Bipolar do - mood better 4.) Rh neg - Rhogam given 05/01/20 5.) H/o ct/gc - neg with labs 6.) Childhood asthma 7.) Tob use - discussed cessation (only 2-3 cigs/day) 8.) Tressa NI 9.) Rub NI 10.) Anemia - on Fe BID 11.) TDAP given 05/01/20 12.) Girl - Legacy (picked by BF) 13.) Fetus cat I FHT 14.) GBS neg MORALES BARRAZA MD Jul 10, 2020 12:23
[2020-07-10] MEDS ORDERED: AZITHROMYCIN 500 MG in IV NORMAL SALINE 250ML 250 ML IV ONE (12:30)
[2020-07-10] MEDS: IV RINGERS,LACTATED 1000ML 1,000 ML IV SCH ×3 (12:39→22:41)
[2020-07-10 12:44] LABS: HEMATOCRIT 35.5 % (36.0-47.0); HEMOGLOBIN 11.9 g/dL (12.0-15.5); RED BLOOD COUNT 3.81 x10^6/uL (3.50-5.40); RED CELL DISTRIBUTION WIDTH 13.4 % (11.5-14.5); WHITE BLOOD COUNT 13.7 x10^3/uL (4.0-11.0)
[2020-07-10 13:04] VITALS: BP 120/69
[2020-07-10] MEDS ORDERED: fentaNYL PF VIAL 100 MCG/2 ML VIAL ONE (13:53)
[2020-07-10] MEDS ORDERED: MORPHINE PF 10 MG/10 ML AMPUL. ONE (13:53)
[2020-07-10] MEDS ORDERED: OXYTOCIN 10 UNIT/ML VIAL. ONE ×3 (13:54→14:48)
[2020-07-10] MEDS ORDERED: diphenhydrAMINE 50 MG/ML VIAL ONE (14:52)
[2020-07-10] MEDS ORDERED: diphenhydrAMINE ORAL ELIXIR 12.5 MG/5 ML ML PO PRN (15:30)
[2020-07-10] MEDS ORDERED: ACETAMINOPHEN 325 MG TABLET. PO PRN (15:30)
[2020-07-10] MEDS ORDERED: MMR per PROTOCOL. MC PRN (15:30)
[2020-07-10] MEDS ORDERED: oxyCODONE/APAP 5/325 1 TAB TABLET PO PRN (15:30)
[2020-07-10] MEDS ORDERED: 0.9 % SODIUM CHLORIDE 10 ML DISP.SYRIN. IV PRN (15:30)
[2020-07-10] MEDS ORDERED: TDaP (Adacel) per PROTOCOL. MC PRN (15:30)
[2020-07-10] MEDS ORDERED: OXYTOCIN 30 UNIT/500 ML PREMIX 500 ML IV PRN (15:30)
[2020-07-10] MEDS ORDERED: BENZOCAINE 20% TOPICAL AEROSOL SPRAY 57GM CAN. TP PRN (15:30)
--- NOTE | 2020-07-10 16:03 | PDOC4 ---
OPERATIVE NOTE: PreOp Dx: 1.) IUP @ 38.1 by 19wk u/s, 2.) SROM, 3.) Prev C/S x 1 - desires repeat, 4.) Bipolar do, 5.) Rh neg, 6.) Childhood asthma, 7.) Tob use, 8.) Tressa NI, 9.) Rub NI, 10.) Anemia, 11.) GBS neg PostOp Dx: same Procedure: RLTCS Surgeon: Rebekah Barraza Anesthesia: Spinal EBL: 600cc Fluids: 1800cc UOP: 80cc Complications: None Findings: viable female delivered at 1433. Wt 5lb 10.2oz. APGARS 8/9, keloid scar, nml tubes and ovaries. Path: Cord blood MORALES BARRAZA MD Jul 10, 2020 16:03
[2020-07-10] MEDS ORDERED: KETOROLAC 30 MG/ML VIAL. IVP PRN (17:15)
--- NOTE | 2020-07-10 17:26 | OP ---
DATE OF SURGERY: 07/10/2020 PREOPERATIVE DIAGNOSES: 1. Intrauterine at 38 weeks and 1 day by 19-week ultrasound. 2. Spontaneous rupture of membranes. 3. Previous section x 1, desires repeat. 4. Bipolar disorder. 5. Rh negative. 6. Childhood asthma. 7. Tobacco use. 8. Varicella nonimmune. 9. Rubella nonimmune. 10. Anemia. 11. GBS negative. POSTOPERATIVE DIAGNOSES: 1. Intrauterine at 38 weeks and 1 day by 19-week ultrasound. 2. Spontaneous rupture of membranes. 3. Previous section x 1, desires repeat. 4. Bipolar disorder. 5. Rh negative. 6. Childhood asthma. 7. Tobacco use. 8. Varicella nonimmune. 9. Rubella nonimmune. 10. Anemia. 11. GBS negative. PROCEDURE: Repeat low transverse . SURGEON: Juan Barraza MD ANESTHESIA: Spinal. ESTIMATED BLOOD LOSS: 600 mL. FLUIDS: 1800 mL. URINE OUTPUT: 80 mL. COMPLICATIONS: None. FINDINGS: Viable female infant delivered at 1433 hours, weighing 5 pounds 10.2 ounces with Apgars of 8 and 9. Keloid scar was noted with normal tubes and ovaries. PATHOLOGY: Cord blood. DESCRIPTION OF PROCEDURE: The patient was taken to the operating room where spinal anesthesia was placed without difficulty. The patient was prepped and draped in normal sterile fashion with a left lateral tilt. The keloid scar created from her previous Pfannenstiel incision was cut out by making an elliptical incision around the keloid and then cutting out the scar with the scalpel and the Bovie. Once the previous scar was removed, the incision was then carried down through the subcutaneous tissue down to the underlying fascia. The fascia was then nicked in the midline. Fascial incision was then extended laterally with Valentine scissors. The superior aspect of the fascial incision was then grasped with Ritika clamps, elevated and underlying rectus muscle was dissected off with the scalpel. Attention was then turned to the inferior aspect of fascial incision, which was grasped with Ritika clamps, elevated and underlying rectus muscle was dissected off with Valentine scissors. The midline of the rectus muscle was then identified and . At that point, the peritoneum was grasped with 2 hemostats, tented up and entered sharply with Metzenbaum scissors. The peritoneal cavity was digitally checked for adhesions. No adhesions were appreciated. At that point, the peritoneal incision was then extended superiorly and inferiorly with good visualization of the bladder with traction and countertraction. At that point, the Yinka ring was then placed into the patient's abdomen to gain better view of her lower uterine segment. Bladder flap was then created with Metzenbaum scissors. The lower uterine segment was then incised in a transverse fashion with the scalpel. The uterine incision was then extended with traction and countertraction. The 's head was then flexed and brought through the hysterotomy. The rest of the infant was delivered atraumatically. The nose and mouth were bulb suctioned. The cord was double clamped and cut and infant was handed over to the awaiting bushler. The cord blood was then obtained. Placenta was then removed manually and the uterus was then cleared of all clots and debris. The incision was then repaired with #1 chromic in a running locked fashion. A second layer of the same suture was used to imbricate. At that point, there was an area at the left lateral edge that appeared to be bleeding. A 3-0 chromic was then used to create hemostasis with a stsxgw-ak-gspva stitch. At that point, good hemostasis was noted. At that point, the gutters were copiously irrigated and cleared of all clots and debris. The peritoneum was then reapproximated with 2-0 Vicryl in a running fashion. The muscle was reapproximated with 2-0 Vicryl in a running fashion. The fascia was then closed with 0 Vicryl in a running fashion. The space was then reapproximated with 2-0 Vicryl in interrupted manner. The skin was then closed with a 3-0 Monocryl in a subcuticular manner. The patient tolerated the procedure well. Sponges, laps, and needles were correct x 3. Two grams of Ancef were given as well as azithromycin due to the patient being ruptured prior to the procedure. The patient was taken to the recovery room in stable condition. JUAN BARRAZA MD DR: LINDSAY/apple JOB#: [id number] / [id number] C[place]
[2020-07-10 18:05] VITALS: BP 103/45
[2020-07-10 18:35] VITALS: BP 110/49
[2020-07-10 19:05] VITALS: BP 114/49
[2020-07-10 21:30] VITALS: BP 111/51
[2020-07-11 01:12] VITALS: BP 103/56
[2020-07-11 07:01] VITALS: BP 105/61
[2020-07-11 07:11] LABS: HEMATOCRIT 27.6 % (36.0-47.0); HEMOGLOBIN 9.3 g/dL (12.0-15.5); RED BLOOD COUNT 2.94 x10^6/uL (3.50-5.40); RED CELL DISTRIBUTION WIDTH 13.2 % (11.5-14.5)
[2020-07-11] MEDS: FERROUS SULFATE 325 MG TABLET. PO SCH ×3 (08:00→21:31)
[2020-07-11] MEDS: PRENATAL MULTIVITAMIN TABLET. PO SCH (09:00)
[2020-07-11] MEDS: DOCUSATE SODIUM 100 MG CAPSULE. PO PRN (09:51)
[2020-07-11] MEDS: IBUPROFEN 400 MG TABLET. PO PRN (09:51)
[2020-07-11] MEDS: MULTIVITAMIN with MINERAL TABLET. PO SCH (09:52)
[2020-07-11 11:15] VITALS: BP 110/62
--- NOTE | 2020-07-11 11:18 | PDOC ---
PROFESSOR OF PSYCHOLOGY PROGRESS NOTE Date of Service: DATE: 07/11/20 TIME: 11:17 Subjective: Pt with good pain control. Srinivasa PO. Voiding. Minimal lochia. Discussed inc revision Objective: Vital Signs: Vital Signs Date Time Temp Pulse Resp B/P (MAP) Pulse Ox O2 Delivery O2 Flow Rate FiO2 07/10/20 13:04 98.1 75 18 120/69 (86) 98.1 07/10/20 18:05 100 Room Air Vital Signs Date Time Temp Pulse Resp B/P (MAP) Pulse Ox O2 Delivery O2 Flow Rate FiO2 07/11/20 07:01 98.3 68 105/61 (76) 98 98.3 07/10/20 21:30 20 Room Air Labs: Laboratory Tests Test 07/10/20 11:52 07/10/20 11:54 07/11/20 06:45 Treponema pallidum Antibody Nonreactive (Nonreactive) White Blood Count 13.7 x10^3/uL (4.0-11.0) H 13.0 x10^3/uL (4.0-11.0) H Red Blood Count 3.81 x10^6/uL (3.50-5.40) 2.94 x10^6/uL (3.50-5.40) L Hemoglobin 11.9 g/dL (12.0-15.5) L 9.3 g/dL (12.0-15.5) L Hematocrit 35.5 % (36.0-47.0) L 27.6 % (36.0-47.0) L Mean Corpuscular Volume 93 fL (79-100) 94 fL (79-100) Mean Corpuscular Hemoglobin 31 pg (25-35) 32 pg (25-35) Mean Corpuscular Hemoglobin Concent 33 g/dL (31-37) 34 g/dL (31-37) Red Cell Distribution Width 13.4 % (11.5-14.5) 13.2 % (11.5-14.5) Platelet Count 147 x10^3/uL (140-400) 123 x10^3/uL (140-400) L Laboratory Tests 07/10/20 11:54 07/11/20 06:45 Laboratory Tests 07/11/20 06:45 Physical Exam: GENERAL: No apparent distress. Alert and oriented. HEENT: Head normocephalic, atraumatic. NECK: Supple LUNGS: Clear to auscultation. HEART: RRR, S1, S2 present, pulses intact ABDOMEN: Soft, positive bowel sounds. EXTREMITIES: No cyanosis or edema. NEUROLOGIC: Normal speech, normal tone PSYCHIATRIC: Normal affect, normal mood. SKIN: No ulceration. FFNT below umb Inc: C/D/I, no e/e no C/C/E Assessment & Plan: A/P 25y POD #1 s/p primary LTCS 1.) PO - doing well 2.) Bipolar do - mood stable 3.) Rh neg - baby Rh pos 4.) Childhood asthma 5.) Tob use - discussed cessation (only 2-3 cigs/day) 6.) Tressa NI 7.) Rub NI 8.) Anemia - Hgb 11.9 -> 9.3, on Fe BID 9.) TDAP given 05/01/20 10.) Girl - Legacy (picked by BF) MORALES BARRAZA MD Jul 11, 2020 11:18
[2020-07-11] MEDS: IV RINGERS,LACTATED 1000ML 1,000 ML IV SCH ×2 (12:45→20:45)
[2020-07-11 16:30] VITALS: BP 112/63
[2020-07-11 19:00] VITALS: BP 98/53
[2020-07-11] MEDS: oxyCODONE/APAP 5/325 1 TAB TABLET PO PRN (21:30)
[2020-07-11 23:00] VITALS: BP 119/64
[2020-07-12] MEDS: oxyCODONE/APAP 5/325 1 TAB TABLET PO PRN (02:38)
[2020-07-12 06:31] VITALS: BP 110/67
[2020-07-12] MEDS ORDERED: OXYC1TAB15 PO (08:37)
[2020-07-12] MEDS ORDERED: FERR325T14 PO (08:37)
[2020-07-12] MEDS ORDERED: IBUP-1060 PO (08:37)
[2020-07-12] MEDS ORDERED: DOCU-109 PO (08:37)
[2020-07-12] MEDS: PRENATAL MULTIVITAMIN TABLET. PO SCH (08:41)
[2020-07-12] MEDS: FERROUS SULFATE 325 MG TABLET. PO SCH (08:41)
[2020-07-12] MEDS: DOCUSATE SODIUM 100 MG CAPSULE. PO PRN (08:42)
[2020-07-12] MEDS: IBUPROFEN 400 MG TABLET. PO PRN (08:42)
[2020-07-12] MEDS ORDERED: MEASLES, MUMPS & RUBELLA VACC 0.5 ML VIAL. VAX SQ ONE (09:00)
[2020-07-12] MEDS: MULTIVITAMIN with MINERAL TABLET. PO SCH (09:00)
--- NOTE | 2020-07-12 09:09 | PDOC ---
COMMERCIAL ESCROW ASSISTANT PROGRESS NOTE Date of Service: DATE: 07/12/20 TIME: 09:07 Subjective: Pt with good pain control. Srinivasa PO. Voiding. minimal lochia. Objective: Vital Signs: Vital Signs Date Time Temp Pulse Resp B/P (MAP) Pulse Ox O2 Delivery O2 Flow Rate FiO2 07/11/20 07:01 98.3 68 105/61 (76) 98 98.3 07/11/20 11:15 18 Room Air Vital Signs Date Time Temp Pulse Resp B/P (MAP) Pulse Ox O2 Delivery O2 Flow Rate FiO2 07/12/20 08:42 18 Room Air 07/12/20 06:31 98.1 78 110/67 (81) 97 98.1 Physical Exam: GENERAL: No apparent distress. Alert and oriented. HEENT: Head normocephalic, atraumatic. NECK: Supple LUNGS: Clear to auscultation. HEART: RRR, S1, S2 present, pulses intact ABDOMEN: Soft, positive bowel sounds. EXTREMITIES: No cyanosis or edema. NEUROLOGIC: Normal speech, normal tone PSYCHIATRIC: Normal affect, normal mood. SKIN: No ulceration. Inc: C/D/I, no e/e Assessment & Plan: A/P 25y POD #2 s/p primary LTCS 1.) PO - doing well 2.) Bipolar do - mood stable 3.) Rh neg - baby Rh pos 4.) Childhood asthma 5.) Tob use - discussed cessation (only 2-3 cigs/day) 6.) Tressa NI 7.) Rub NI 8.) Anemia - Hgb 11.9 -> 9.3, on Fe BID 9.) TDAP given 05/01/20 10.) Girl - Legacy 11.) D/c home MORALES BARRAZA MD Jul 12, 2020 09:09
[2020-07-12 10:33] VITALS: BP 132/75
--- NOTE | 2020-07-12 11:15 | DS ---
DATE OF DISCHARGE: 07/12/2020 ADMISSION DIAGNOSES: 1. Intrauterine at 38 weeks and 1 day by 19-week ultrasound. 2. Spontaneous rupture of membranes. 3. Previous section x 1, desires repeat. 4. Bipolar disorder. 5. Rh negative. 6. Childhood asthma. 7. Tobacco use. 8. Varicella nonimmune. 9. Rubella nonimmune. 10. Anemia. 11. GBS negative. DISCHARGE DIAGNOSES: 1. Intrauterine at 38 weeks and 1 day by 19-week ultrasound. 2. Spontaneous rupture of membranes. 3. Previous section x 1, desires repeat. 4. Bipolar disorder. 5. Rh negative. 6. Childhood asthma. 7. Tobacco use. 8. Varicella nonimmune. 9. Rubella nonimmune. 10. Anemia. 11. GBS negative. PROCEDURE: Repeat lower transverse . BRIEF HOSPITAL COURSE: The patient is a 25-year-old 2, para 1-0-0-1, who presented to Labor and Delivery at 38 weeks and 1 day by 19-week ultrasound with leakage of fluid. The patient was confirmed ruptured. The patient had a previous section and desired a repeat. The OR team was mobilized. The patient underwent said procedure. See operative note for full detail. By postoperative day #2, the patient was meeting all discharge criteria and desired discharge home. Of note, the patient's hemoglobin on admission was 11.9 and postoperatively was found to be 9.3. The patient was continued on her iron. The patient also was given RhoGAM prior to discharge. DISCHARGE INSTRUCTIONS: The patient was told not to lift anything greater than 20 pounds, have pelvic rest for [address] on narcotics. CALL IF: The patient was to call if she had fevers, chills, nausea, vomiting, abdominal pain or any additional questions or concerns. FOLLOWUP APPOINTMENT: The patient is to follow up on 07/17/2020 at 1:45 p.m. for her incision check. DISCHARGE MEDICATIONS: The patient was given a prescription for Percocet 5, 15 pills; Motrin 800 mg, 30 pills; Colace 100 mg, 30 pills and ferrous sulfate 325 mg, 30 pills. MORALES BARRAZA MD DR: LINDSAY/apple JOB#: [id number] / [id number]
[2020-07-12 16:12] VITALS: BP 115/66
--- NOTE | 2020-07-12 16:35 | NUR ---
Discharge and follow up instructions reviewed and given to pt. along with 4 Rx's. Pt verbalized understanding and denied any problems at time of D/C. Pt ambulated out of the hospital with her S/O and her infant by her side.
== END 2020-07-12 16:35 | disposition home or self-care (01) | DRG 788 ==
LOC: 3 SO LND 10:13 → OBSVTOIN 12:00 → 3 NORTH 17:56
PROVIDERS: ADMIT Obstetrics & Gynecology; ATTEND Obstetrics & Gynecology
PROC: 10D00Z1 Extraction of Products of Conception, Low, Open Approach (ICD-10-PCS; principal; 2020-07-10)
PROC: 3E0234Z Introduction of Serum, Toxoid and Vaccine into Muscle, Percutaneous Approach (ICD-10-PCS; 2020-07-12)
DX: O34.211 Maternal care for low transverse scar from previous cesarean delivery (principal); D64.9 Anemia, unspecified; F31.9 Bipolar disorder, unspecified; O99.02 Anemia complicating childbirth; O99.344 Other mental disorders complicating childbirth; O99.52 Diseases of the respiratory system complicating childbirth; J45.909 Unspecified asthma, uncomplicated; L91.0 Hypertrophic scar; O76 Abnormality in fetal heart rate and rhythm complicating labor and delivery; O99.72 Diseases of the skin and subcutaneous tissue complicating childbirth; Z20.828 Contact with and (suspected) exposure to other viral communicable diseases; O26.893 Other specified pregnancy related conditions, third trimester; Z3A.38 38 weeks gestation of pregnancy; Z37.0 Single live birth; Z67.91 Unspecified blood type, Rh negative; O42.92 Full-term premature rupture of membranes, unspecified as to length of time between rupture and onset of labor
CPT/HCPCS: 36415; 81001; 84112; 85027; 85461; 86592; 86850; 86900; 86901; 87426; 90471; 90707; G0378; G0379; J0456; J1200; J1885; J2274; J2590; J2791; J3010; J7050; J7120; J7030; U0003-CS